=== PATIENT | female | born 1970 | race American Indian/Alaskan Native ===

== ENCOUNTER 2017-02-05 16:51 | Emergency (ER) | payer OTHER ==
[2017-02-05 17:06] VITALS: O2SAT 98
--- NOTE | 2017-02-05 17:21 | ED PDOC ---
Arrival/HPI - General Chief Complaint: Abdominal Pain Time Seen by Provider: 02/05/17 17:06 Historian: Patient - History of Present Illness Narrative History of Present Illness (Text): 02/05/17 17:07 46 y/o female, pmh including overian cyst, nkda, c/o pelvic cramp x 4 weeks with no fall or trauma. Aching and cramping pain mid anteriorly, traveling to the lower back region, chronic pelvic pain on and off for years and been following up with her own obgyn, started to have pain again last month, admits heavy period on time, no fever or chills, no night sweat, no dizziness, no change in vision, no rash, no vaginal bleeding or discharge, no other medical or psychological complaints. Past Medical History - Provider Review Nursing Documentation Reviewed: Yes - Infectious Disease Hx of Infectious Diseases: None - Neurological Hx Seizures: Yes - Psychiatric Hx Substance Use: No - Surgical History Other/Comment: b/l foot surgery. Family/Social History - Physician Review Nursing Documentation Reviewed: Yes Family/Social History: Unknown Family HX Smoking Status: Light Smoker < 10 Cigarettes Daily Hx Alcohol Use: No Hx Substance Use: No Allergies/Home Meds Allergies/Adverse Reactions: Allergies Fruit Allergy (Uncoded 02/05/17 17:06) SWELLING Shellfish Allergy (Uncoded 02/05/17 17:06) ANAPHYLAXIS Home Medications: Home Meds Medication Instructions Recorded Confirmed Divalproex [Yasmine KING (*BID*)] 3 tab PO TID 02/05/17 02/05/17 Zonisamide [Zonegran] 1 cap PO DAILY 02/05/17 02/05/17 Review of Systems - Review of Systems Constitutional: absent: Fatigue, Fevers Eyes: absent: Vision Changes ENT: absent: Hearing Changes Respiratory: absent: SOB, Cough Cardiovascular: absent: Chest Pain Gastrointestinal: absent: Abdominal Pain, Diarrhea, Nausea, Vomiting Musculoskeletal: absent: Arthralgias, Back Pain Skin: absent: Rash, Pruritis, Skin Lesions, Laceration, Abscess, Ulcer Neurological: absent: Headache, Dizziness, Focal Weakness Physical Exam Vital Signs Reviewed: Yes Vital Signs Temp Pulse Resp BP Pulse Ox 02/05/17 18:30 98.9 F 68 17 142/74 98 02/05/17 17:00 99.1 F 69 16 138/85 98 Temperature: Afebrile Blood Pressure: Normal Pulse: Regular Respiratory Rate: Normal Appearance: Positive for: Well-Appearing, Non-Toxic, Comfortable Pain Distress: Moderate Mental Status: Positive for: Alert and Oriented X 3 - Systems Exam Head: Present: Atraumatic, Normocephalic Pupils: Present: PERRL Extroacular Muscles: Present: EOMI Conjunctiva: Present: Normal Mouth: Present: Moist Mucous Membranes Neck: Present: Normal Range of Motion Respiratory/Chest: Present: Clear to Auscultation, Good Air Exchange. No: Respiratory Distress, Accessory Muscle Use Cardiovascular: Present: Regular Rate and Rhythm, Normal S1, S2. No: Murmurs Abdomen: Present: Normal Bowel Sounds. 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 No: Vaginal Discharge, Vaginal Bleeding, Vaginal Lesions, Adenexal Tenderness, Adenexal Mass, Cervical Motion Tendernes, Odor Back: Present: Normal Inspection Upper Extremity: Present: Normal Inspection. No: Cyanosis, Edema Lower Extremity: Present: Normal Inspection. No: Edema Neurological: Present: GCS=15, Speech Normal, Motor Func Grossly Intact, Gait Normal, Memory Normal Skin: Present: Warm, Dry, Normal Color. No: Rashes Psychiatric: Present: Alert, Oriented x 3, Normal Insight, Normal Concentration Medical Decision Making ED Course and Treatment: 02/05/17 17:26 -labs/ua -transvaginal sonogram -observe and reassess 02/05/17 18:45 -Labs are non significant -UA show no UTI -Sonogram show heterogenuous texture, unable to visualized left ovary. Pt. stated that her last sonogram about couple months ago which unable to visualized the left ovary as well which is common for her. -Pt. feels completely relief with the toradol. Pelvic examination is unremarkable except mild atrophy noted on the vaginal canal. -Pt. has no left adnexal tenderness, clinically not suspecting the lt. ovarian torsion especially the patient's pain been 4 weeks and feels the same, no elevation of wbc, no fever or chills. -Pt. wishes to be discharged home and she has scheduled appointment to see her own obgyn in 3 days. -Case discussed with ER attending DR. King,he agreed on the dispo and discharge plan. -Discharge home with naproxen, bed rest, stay hydrated, follow up with your own pmd and obgyn within 2 days, return to the ER for any new or worsening signs or symptoms - Lab Interpretations Lab Results: 02/05/17 17:35 02/05/17 17:35 Lab Results 02/05/17 17:35: WBC 8.6, RBC 3.92, Hgb 12.8, Hct 36.9, MCV 94.1, MCH 32.7, MCHC 34.7, RDW 13.5, Plt Count 289, MPV 8.9, Gran % 27.6 L, Lymph % (Auto) 64.6 H, Kingman % (Auto) 4.4, Eos % (Auto) 3.1, Baso % (Auto) 0.3, Gran # 2.36, Lymph # 5.6 H, Kingman # 0.4, Eos # 0.3, Baso # 0.03 02/05/17 17:35: Sodium 137, Potassium 4.1, Chloride 103, Carbon Dioxide 25, Anion Gap 13, BUN 16, Creatinine 0.9, Est GFR ( Amer) > 60, Est GFR (Non- Af Amer) > 60, Random Glucose 90, Calcium 9.3, Total Bilirubin 0.2, AST 24, ALT 13, Alkaline Phosphatase 92, Total Protein 6.9, Albumin 3.9, Globulin 3.0, Albumin/Globulin Ratio 1.3 02/05/17 17:35: Urine Color Yellow, Urine Appearance Clear, Urine pH 6.0, Ur Specific Egan 1.025, Urine Protein Negative, Urine Glucose (UA) Negative, Urine Ketones Negative, Urine Blood Small H, Urine Nitrate Negative, Urine Bilirubin Negative, Urine Urobilinogen 1.0 H, Ur Leukocyte Esterase Negative, Urine RBC 5 - 10, Urine WBC Negative, Ur Epithelial Cells 4 - 5, Urine Bacteria Few I have reviewed the lab results: Yes Interpretation: No clinic. lab abnormalty - RAD Interpretation Radiology Orders: 02/05/17 17:21 TRANSVAGINAL [US] Stat HISTORY: bilateral pelvic pain x 4 weeks COMPARISON: None available. TECHNIQUE: Transvaginal pelvic ultrasound. FINDINGS: UTERUS: Measures 8.9 x 5.1 x 5.6 cm. Heterogeneous uterine echotexture. ENDOMETRIUM: Measures 2 mm in diameter. CERVIX: No cervical abnormality identified. RIGHT OVARY: Measures 2.3 x 2.2 x 2.5 cm. Blood flow is demonstrated. LEFT OVARY: Not visualized. FREE FLUID: No significant free fluid noted. OTHER FINDINGS: None. IMPRESSION: Examination limited by bowel gas. Heterogeneous uterine echotexture. The left ovary is not visualized. Kaiawhina Kohanga Reo: Radiologist - Medication Orders Current Medication Orders: Discontinued Medications Ketorolac Tromethamine (Toradol) 60 mg IM STAT STA Stop: 02/05/17 17:28 Last Admin: 02/05/17 18:07 Dose: 60 mg - PA / WELL DRILLER / Resident Statement MD/DO has reviewed & agrees with the documentation as recorded. Disposition/Present on Arrival - Present on Arrival Any Indicators Present on Arrival: No History of DVT/PE: No History of Uncontrolled Diabetes: No Urinary Catheter: No History of Decub. Ulcer: No History Surgical Site Infection Following: None - Disposition Have Diagnosis and Disposition been Completed?: Yes Diagnosis: Chronic pelvic pain in female, Abnormal ultrasound of uterus Disposition: HOME/ ROUTINE Disposition Time: 18:48 Patient Plan: Discharge Patient Problems: Current Active Problems Problem Status Onset Chronic pelvic pain in female Acute Abnormal ultrasound of uterus Acute Condition: IMPROVED Additional Instructions: -Discharge home with naproxen, bed rest, stay hydrated, follow up with your own pmd and obgyn within 2 days, return to the ER for any new or worsening signs or symptoms Prescriptions: Naproxen 500 mg PO BID PRN #20 tab PRN Reason: Other Referrals: Margie Kunz, [Primary Care Provider] - Follow up with primary Jorge Acevedo MD [Staff Provider] - Follow up with primary Forms: [employer] (Kinyarwanda), WORK NOTE
[2017-02-05 17:50] LABS: ALB/GLOB RATIO 1.3 (1.1-1.8); ALKALINE PHOSPHATASE 92 U/L (38-126); ALT/SGPT 13 U/L (7-56); AST/SGOT 24 U/L (14-36); BILIRUBIN,TOTAL 0.2 mg/dL (0.2-1.3); BLOOD UREA NITROGEN 16 mg/dL (7-21); CALCIUM 9.3 mg/dL (8.4-10.5); CARBON DIOXIDE 25 mmol/L (21-33); CHLORIDE 103 mmol/L (98-107); GFR AFRICAN-AMERICAN > 60; GLUCOSE,RANDOM 90 mg/dL (70-110); POTASSIUM 4.1 mmol/L (3.6-5.0); SODIUM 137 mmol/L (132-148); TOTAL PROTEIN 6.9 g/dL (5.8-8.3)
[2017-02-05 17:59] LABS: URINE BILIRUBIN NEGATIVE (NEGATIVE); URINE BLOOD SMALL (NEGATIVE); URINE GLUCOSE (UA) NEGATIVE (NEGATIVE); URINE KETONE NEGATIVE (NEGATIVE); URINE LEUKOCYTE ESTERASE NEGATIVE Leu/uL (NEGATIVE); URINE PROTEIN NEGATIVE mg/dL (<30 mg/dL)
[2017-02-05 18:00] LABS: BASO # 0.03 K/mm3 (0.0-2.0); BASO % 0.3 % (0.0-3.0); EOS # 0.3 (0.0-0.7); EOS % 3.1 % (1.5-5.0); GRAN # 2.36 (1.4-6.5); GRAN % 27.6 % (50.0-68.0); HEMATOCRIT 36.9 % (36.0-48.0); LYMPH # 5.6 (1.2-3.4); LYMPH % 64.6 % (22.0-35.0); MEAN CELL VOLUME 94.1 fl (80.0-105.0); MEAN CORPUSCULAR HEMOGLOBIN 32.7 pg (25.0-35.0); MEAN CORPUSCULAR HGB CONC 34.7 g/dl (31.0-37.0); MEAN PLATELET VOLUME 8.9 fl (7.0-11.0); MONO # 0.4 (0.1-0.6); MONO % 4.4 % (1.0-6.0); RED CELL DISTRIBUTION WIDTH 13.5 % (11.5-14.5); WHITE BLOOD COUNT 8.6 10^3/ul (4.5-11.0)
[2017-02-05 18:01] LABS: URINE APPEARANCE CLEAR (CLEAR); URINE COLOR YELLOW (YELLOW)
[2017-02-05 18:12] LABS: URINE WBC NEGATIVE /hpf (0-6)
[2017-02-05 18:13] LABS: URINE BACTERIA FEW (NEG)
--- NOTE | 2017-02-05 18:23 | US ---
HISTORY: bilateral pelvic pain x 4 weeks COMPARISON: None available. TECHNIQUE: Transvaginal pelvic ultrasound. FINDINGS: UTERUS: Measures 8.9 x 5.1 x 5.6 cm. Heterogeneous uterine echotexture. ENDOMETRIUM: Measures 2 mm in diameter. CERVIX: No cervical abnormality identified. RIGHT OVARY: Measures 2.3 x 2.2 x 2.5 cm. Blood flow is demonstrated. LEFT OVARY: Not visualized. FREE FLUID: No significant free fluid noted. OTHER FINDINGS: None. IMPRESSION: Examination limited by bowel gas. Heterogeneous uterine echotexture. The left ovary is not visualized.
[2017-02-05 18:31] VITALS: BP 142/74; PULSE 68; RESP 17; TEMP 98.9
== END 2017-02-05 18:56 | disposition home or self-care (01) ==
LOC: ED 16:51
DX: R10.2 Pelvic and perineal pain (principal); R93.8 Abnormal findings on diagnostic imaging of other specified body structures
CPT/HCPCS: 76830; 80053; 81001; 85025; 96372; 99283; J1885